=== PATIENT | male | born 1990 | race Two or more races ===

== ENCOUNTER 2024-05-12 09:53 | Emergency (ER) | payer MEDICAID ==
[~2024-05-12] VITALS: Ht 182.9 cm; Wt 108.9 kg
[2024-05-12 10:03] VITALS: BP 136/78; TEMP 98.6
[2024-05-12 10:59] VITALS: O2SAT 99
[2024-05-13 11:09] LABS: HEPATITIS B SURFACE AB Non Reactive (.)
[2024-05-13 22:35] LABS: HIV-1 p24 ANTIGEN NON REACTIVE (NONREACTIVE); HIV-1/2 ANTIBODY NON REACTIVE (NONREACTIVE)
== END 2024-05-12 11:00 | disposition home or self-care (01) ==
LOC: ER 09:57
DX: S61.231A Puncture wound without foreign body of left index finger without damage to nail, initial encounter (principal); W46.0XXA Contact with hypodermic needle, initial encounter; Y93.89 Activity, other specified; Y92.89 Other specified places as the place of occurrence of the external cause; Y99.8 Other external cause status
CPT/HCPCS: 36415; 86706; 86803; 87340; 87806